=== PATIENT | female | born 1950 | race African-American/Black ===

== ENCOUNTER 2016-12-18 17:16 | Emergency (ER) | payer OTHER ==
[2016-12-18 17:25] VITALS: BP 153/80; PULSE 90; TEMP 98.3; BMI 25.0
--- NOTE | 2016-12-18 19:42 | PDOC ---
History of Present Illness - General History Source: Patient Exam Limitations: No Limitations - History of Present Illness Initial Comments: 12/18/16 19:53 The patient is a 65 year old female, with a significant past medical history of hypertension and diabetes, who presents to the emergency department complaining of generalized weakness and blurry vision since earlier today. The patient reports she usually takes oral medications for her diabetes, and states it is well controlled. However, patient reports when she checked her blood sugar earlier today, it was well above 400. Patient states she felt that she had a viral illness last week, but has been feeling better since. She reports a sore throat, but denies fever, chills, cough, headache, or dizziness. She denies any chest pain, shortness of breath, diaphoresis, or palpitations. She denies any dysuria, hematuria, frequency, or urgency. She denies any abdominal pain, nausea , vomiting, diarrhea, or constipation. She denies any recent travel or sick contacts. Allergies: None reported Past Surgical History: None reported Social History. Non smoker. No ETOH or drug use. PCP: Dr. Andry Hood <Librado Goetz - Last Filed: 12/18/16 20:58> - General History Source: Patient <[email or web address] - Last Filed: 12/18/16 23:32> - General Chief Complaint: Blood Sugar Problem Stated Complaint: WEAKNESS Time Seen by Provider: 12/18/16 19:35 Past History <Librado Goetz - Last Filed: 12/18/16 20:58> - Past Medical History Diabetes: Yes HTN: Yes - Psycho/Social/Smoking Cessation Hx Suicidal Ideation: No Smoking History: Never smoked <Sherwin Dias - Last Filed: 12/18/16 23:32> - Past Medical History Allergies/Adverse Reactions: Allergies Allergy/AdvReac Type Severity Reaction Status Date / Time No Known Allergies Allergy Verified 12/18/16 17:22 Home Medications: Ambulatory Orders NK [No Known Home Medication] 12/18/16 Review of Systems - Review of Systems Able to Perform ROS?: Yes Comments:: 12/18/16 19:55 CONSTITUTIONAL: Present: +Generalized weakness Absent: fever, no chills, no fatigue EYES: Present: +blurry vision ENT: Present: +sore throat Absent: ear pain CARDIOVASCULAR: Absent: chest pain, no palpitations RESPIRATORY: Absent: cough, no SOB GI: Absent: abdominal pain, no nausea, no vomiting, no constipation, no diarrhea GENITOURINARY: Absent: dysuria, no frequency, no hematuria MUSCULOSKELETAL: Absent: back pain, no arthralgia, no myalgia SKIN: Absent: rash NEURO: Absent: headache <[email or web address] - Last Filed: 12/18/16 20:58> *Physical Exam - Vital Signs Last Vital Signs Temp Pulse Resp BP Pulse Ox 98.3 F 90 18 153/80 100 12/18/16 17:22 12/18/16 17:22 12/18/16 17:22 12/18/16 17:22 12/18/16 17:22 - Physical Exam Comments: 12/18/16 19:55 GENERAL: Well-appearing, well-nourished. No apparent distress. HEENT: +Slight erythema at posterior pharynx. +Eyes slightly injected bilaterally. Normocephalic, atraumatic. PERRL, EOM intact. CARDIOVASCULAR: Normal S1, S2. Regular rate and rhythm. PULMONARY: Clear to auscultation bilaterally. ABDOMEN: Soft, non-distended, non-tender. EXTREMITIES: Normal ROM in all four extremities. No gross deformities. SKIN: Warm, dry. No rash NEUROLOGICAL: No focal neurological deficits. <Librado Goetz - Last Filed: 12/18/16 20:58> - Vital Signs Last Vital Signs Temp Pulse Resp BP Pulse Ox 98.3 F 90 18 153/80 100 12/18/16 17:22 12/18/16 17:22 12/18/16 17:22 12/18/16 17:22 12/18/16 17:22 <Sherwin Dias - Last Filed: 12/18/16 23:32> ED Treatment Course - LABORATORY CBC & Chemistry Diagram: 12/18/16 19:55 12/18/16 19:55 <Librado Goetz - Last Filed: 12/18/16 20:58> - LABORATORY CBC & Chemistry Diagram: 12/18/16 19:55 12/18/16 19:55 <Sherwin Dias - Last Filed: 12/18/16 23:32> Medical Decision Making - Medical Decision Making 12/18/16 23:30 Dr. Dias: The scribe's documentation has been prepared under my direction and personally reviewed by me in its entirery. I confirm that the note above accurately reflects all work, treatment, procedures, and medical decision making performed by me. Pt accucheck is 215. Pt is hemodynamically stable. Pt to be discharged. <Sherwin Dias - Last Filed: 12/18/16 23:32> *DC/Admit/Observation/Transfer - Attestations Scribe Attestion: 12/18/16 19:55 Documentation prepared by Libraod Goetz, acting as medical staff credentialing coordinator for Sherwin Dias DO. <Librado Goetz - Last Filed: 12/18/16 20:58> <Sherwin Dias - Last Filed: 12/18/16 23:32> - Referrals Referrals: Andry Hood MD [Primary Care Provider] -
[2016-12-18] MEDS ORDERED: SODIUM CHLORIDE 1,000 ML IV STA (20:20)
[2016-12-18 20:28] LABS: BASOPHIL 0.9 % (0-2.0); EOSINOPHIL 3.9 % (0-4.5); MCH 25.5 pg (25.7-33.7); MCHC 31.7 g/dl (32.0-36.0); MEAN CELL VOLUME 80.6 fl (80-96); NEUTROPHILS 46.3 % (42.8-82.8); PLATELET COUNT 289 K/MM3 (134-434); RDW 13.9 % (11.6-15.6); WHITE BLOOD COUNT 7.3 K/mm3 (4.0-10.0)
[2016-12-18 20:38] LABS: INR 1.06 (0.82-1.09); PROTHROMBIN TIME (PATIENT) 11.7 SEC (9.98-11.88)
[2016-12-18 21:08] LABS: ALBUMIN 3.3 g/dl (3.4-5.0); ANION GAP 7 (8-16); CO2 30 mmol/L (21-32)
[2016-12-18 21:14] LABS: ALK PHOS 80 U/L (45-117); BILIRUBIN,TOTAL 0.4 mg/dL (0.2-1.0); CREATININE 0.7 mg/dL (0.55-1.02); SGOT/AST 12 U/L (15-37); SGPT/ALT 20 U/L (12-78); TOT PROT 6.8 g/dl (6.4-8.2)
[2016-12-18 21:19] LABS: GLUCOSE,RANDOM 310 mg/dL (74-106)
[2016-12-18] MEDS ORDERED: INSULIN REGULAR HUMAN 100 UNITS/ML *VIAL IVPUSH ONE (21:27)
[2016-12-18 21:41] LABS: AMYLASE 44 U/L (25-115); MAGNESIUM 1.9 mg/dL (1.8-2.4)
[2016-12-18 21:44] LABS: TROPONIN I < 0.02 ng/ml (0.00-0.05)
[2016-12-18 23:22] LABS: URINE APPEARANCE CLEAR; URINE BILIRUBIN NEGATIVE (NEGATIVE); URINE BLOOD NEGATIVE (NEGATIVE); URINE COLOR LTYELLOW; URINE GLUCOSE (UA) 3+ (NEGATIVE); URINE KETONE NEGATIVE (NEGATIVE); URINE LEUK ESTERASE NEGATIVE (NEGATIVE); URINE NITRITE NEGATIVE (NEGATIVE); URINE PROTEIN NEGATIVE (NEGATIVE); URINE UROBILINOGEN NEGATIVE E.U./dl (0.2-1.0)
== END 2016-12-18 23:56 | disposition home or self-care (01) ==
LOC: JER 17:16
PROC: 3E0337Z Introduction of Electrolytic and Water Balance Substance into Peripheral Vein, Percutaneous Approach (ICD-10-PCS; principal; 2016-12-18)
PROC: 3E033VG Introduction of Insulin into Peripheral Vein, Percutaneous Approach (ICD-10-PCS; 2016-12-18)
DX: E11.65 Type 2 diabetes mellitus with hyperglycemia (principal); I10 Essential (primary) hypertension; Z79.4 Long term (current) use of insulin
CPT/HCPCS: 36415; 80053; 81003; 82150; 82550; 83690; 83735; 84484; 85025; 85610; 99282-25

== ENCOUNTER 2016-12-27 11:54 | Emergency (ER) | payer OTHER ==
[2016-12-27 12:08] VITALS: TEMP 98; BMI 25.0
--- NOTE | 2016-12-27 13:37 | PDOC ---
History of Present Illness - General Chief Complaint: Edema Stated Complaint: SWOLLEN FACE Time Seen by Provider: 12/27/16 12:39 History Source: Patient Exam Limitations: No Limitations - History of Present Illness Initial Comments: 12/27/16 13:30 66-year-old female presents to the emergency department with left lower cheek swelling that she noted this morning. Patient states was on her way out the door when she had noticed some swelling and then decided come to the ER for further evaluation. Patient denies recent dental work, sore throat, neck pain, ear pain, recent infection, recent travel, recent injury. Pt with history of diabetes and her glucose this morning was 173 which is about in her range. Timing/Duration: 1-3 hours Severity: mild Associated Symptoms: reports: denies symptoms Past History - Past Medical History Allergies/Adverse Reactions: Allergies Allergy/AdvReac Type Severity Reaction Status Date / Time No Known Allergies Allergy Verified 12/27/16 12:02 Home Medications: Ambulatory Orders NK [No Known Home Medication] 12/18/16 Diabetes: Yes HTN: Yes Other medical history: slaivary gland problems - Psycho/Social/Smoking Cessation Hx Anxiety: No Suicidal Ideation: No Smoking History: Never smoked Have you smoked in the past 12 months: No Information on smoking cessation initiated: No Hx Alcohol Use: No Drug/Substance Use Hx: No Substance Use Type: None Patient Lives Alone: No Review of Systems - Review of Systems Able to Perform ROS?: Yes Constitutional: No: Symptoms Reported HEENTM: No: Ear Pain, Nose Congestion, Throat Pain, Throat Swelling, Dental Problems, Difficulty Swallowing Respiratory: No: Symptoms reported Cardiac (ROS): No: Symptoms Reported Integumentary: Yes: Lumps Neurological: No: Symptoms reported Endocrine: No: Symptoms Reported Hematologic/Lymphatic: No: Symptoms Reported *Physical Exam - Vital Signs Last Vital Signs Temp Pulse Resp BP Pulse Ox 98.0 F 79 18 130/83 100 12/27/16 12:06 12/27/16 12:06 12/27/16 12:06 12/27/16 12:06 12/27/16 12:06 - Physical Exam General Appearance: Yes: Nourished, Appropriately Dressed. No: Apparent Distress HEENT: positive: EOMI, MANUEL, TMs Normal, Pharynx Normal, Other (no edema over the Stensen's duct. No signs of Randal edema. - Trismus). negative: Pale Conjunctivae Neck: positive: Normal Thyroid, Supple. negative: Tender, Decreased range of motion, Lymphadenopathy (R), Lymphadenopathy (L) Respiratory/Chest: positive: Lungs Clear, Normal Breath Sounds. negative: Respiratory Distress, Accessory Muscle Use Cardiovascular: positive: Regular Rhythm, Regular Rate. negative: Murmur Gastrointestinal/Abdominal: positive: Soft. negative: Tenderness Extremity: positive: Normal Capillary Refill. negative: Pedal Edema Integumentary: positive: Normal Color, Warm, Moist, Swelling (slight edema over the mid shaft of left mandible. no visible enlarged submandibular gland), Ecchymosis Neurologic: positive: Motor Strength 5/5 (ambulatory) ED Treatment Course - RADIOLOGY Radiology Studies Ordered: Category Date Time Status FACIAL BONES CT W/O CONTRAST [CT] Stat CT Scan 12/27/16 13:00 Ordered Medical Decision Making - Medical Decision Making 12/27/16 13:08 Patient with left lower facial edema without unknown etiology. Patient had no fever with complaints of fever and sore throat or pain at the site. 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 Patient ordered for CT without contrast 12/27/16 15:23 CT shows a left submandibular gland and triangle demonstrate no discrete noncontrast pathology. There is no ductal dilatation or calculus visualized. There is no discrete bone erosion or drainable fluid collection seen. There is subcutaneous edema seen along the lower half of left face. In comparison to a neck soft tissue CT done in 2008 is markedly right submandibular gland atrophy and again revisualization of 7 mm calculus at the junction of the right submandibular gland and duct. Patient will be given a prescription for clindamycin for possible early dental abscess and coverage for cellulitis. Patient to follow-up with her dentist. *DC/Admit/Observation/Transfer Diagnosis at time of Disposition: Swelling of face - Discharge Dispostion Disposition: HOME Condition at time of disposition: Good - Referrals Referrals: Andry Hood MD [Primary Care Provider] - - Patient Instructions Printed Discharge Instructions: DI for Cellulitis -- Adult Additional Instructions: At this point your CT was negative for acute findings. I am giving her an antibiotic that will cover you for cellulitis of the face along with a dental abscess. I do recommend you follow up with your dentist otherwise return to ED if symptoms worsen.
[2016-12-27 15:36] VITALS: BP 133/60; PULSE 90
== END 2016-12-27 15:32 | disposition home or self-care (01) ==
LOC: JER 11:54
DX: R22.9 Localized swelling, mass and lump, unspecified (principal); I10 Essential (primary) hypertension; E11.9 Type 2 diabetes mellitus without complications; Z87.898 Personal history of other specified conditions
CPT/HCPCS: 70486-TC; 99283-25